=== PATIENT | female | born 1950 | race African-American/Black ===

== ENCOUNTER 2020-10-20 12:50 | Emergency (ER) | payer OTHER ==
[~2020-10-20] VITALS: Ht 152.4 cm; Wt 90.7 kg
[2020-10-20 13:33] LABS: ABSOLUTE BASOPHILS 0.1 thou/uL (0.0-0.2); ABSOLUTE EOSINOPHILS 0.1 thou/uL (0.0-0.7); ABSOLUTE LYMPHOCYTES 1.8 thou/uL (0.8-5.3); ABSOLUTE MONOCYTES 0.9 thou/uL (0.0-1.2); ABSOLUTE NEUTROPHILS 4.9 thou/uL (1.6-8.1); EOSINOPHILS 0.7 %; HEMATOCRIT 40.4 % (37.0-47.0); LYMPHOCYTES 23.7 %; MCH 33.3 pg (26.0-34.0); MCHC 34.8 g/dL (28.0-37.0); MCV 95.8 fL (80.0-100.0); MONOCYTES 11.2 %; MPV 6.3 fl. (7.2-11.1); NUCLEATED RBCS 0 /100WBC; PLATELET COUNT* 350 thou/uL (150-400); POLYS 63.4 %; RBC 4.21 mil/uL (4.20-5.00); RDW-CV 12.3 % (10.5-14.5); WBC 7.7 thou/uL (4.0-11.0)
[2020-10-20] MEDS ORDERED: METOPROLOL PO (13:40)
[2020-10-20 13:42] LABS: CREATININE 0.8 mg/dL (0.6-1.3)
[2020-10-20 13:46] LABS: ALBUMIN 4.4 g/dL (3.4-5.0); TOTAL BILIRUBIN 0.3 mg/dL (<0.1-1.0); TOTAL PROTEIN 7.5 g/dL (6.4-8.2)
[2020-10-20 17:59] VITALS: BP 170/85
--- NOTE | 2020-10-21 15:23 | EKG ---
[place] [address] ELECTROCARDIOGRAM REPORT Name: IRINA CONN Room: [facility]#: [id number] Admission: 10/20/20 Attend Phys: Discharge: 10/20/20 Date of : 46 Date of Service: 10/20/20 1313 Report #: [id number] THIS REPORT FOR: //name// [facility] ED Test Date: 2020-10-20 Test Time: 13:13:51 Pat Name: IRINA CONN Department: Room: Gender: F [employer]: JOHN : 1950 Requested By: Dhaval Ryan Order Number: [id number] MD: Mika Hardin Measurements Intervals [place] Rate: 64 P: 57 [place]: 160 QRS: 39 QRSD: 97 T: 33 QT: 396 QTc: 409 Interpretive Statements Sinus rhythm RSR' in V1 or V2, right VCD No previous ECG available for comparison Electronically Signed On 10-21-2020 15:23:42 CDT by Mika Hardin [email or web address] <ELECTRONICALLY SIGNED> By: Mika Hardin MD, [facility] 10/21/20 1523 1313 1313 Mika Hardin MD, [facility] /EPI
== END 2020-10-20 18:15 | disposition home or self-care (01) ==
LOC: M.ERS 12:50
PROVIDERS: Emergency Medicine Emergency Medical Services
DX: G45.3 Amaurosis fugax (principal)